=== PATIENT | female | born 1995 | race Caucasian/White ===

== ENCOUNTER 2021-01-27 15:25 | Emergency (ER) | payer OTHER ==
[~2021-01-27] VITALS: Ht 165.1 cm; Wt 96.2 kg
[2021-01-27] MEDS ORDERED: IV RINGERS SOLUTION,LACTATED 1,000 ML IV ONE (16:00)
[2021-01-27] MEDS ORDERED: ONDANSETRON PF 4 MG/2 ML VIAL. IVP ONE (16:00)
--- NOTE | 2021-01-27 16:11 | PHYS DOC ---
Past History Additional Past Medical Histor: pre eclampsia, hyperemesis gravidarum (MEI JESUS MD) Past Surgical History: Tonsillectomy (MEI JESUS MD) Alcohol Use: None (MEI JESUS MD) General Adult EDM: Chief Complaint: NAUSEA/VOMITING/DIARRHEA HPI: HPI: Patient is a 26-year-old G3, P2 at about 7 weeks gestational age by LMP complaining of nausea, vomiting, and diarrhea. Denies any fevers. States she has had a sore throat. Emesis is nonbloody or bilious. Denies any decrease in urination. Patient states she thinks that she had some "sour milk" last night that was used to make the hot chocolates. Symptoms started a couple hours after drinking that. Has not had her flu or Covid vaccines. (MEI JESUS MD) Review of Systems: Review of Systems: All other systems within normal limits except for as noted in the HPI (MEI JESUS MD) Current Medications: Current Meds: Current Medications Medications (Trade) Dose Ordered Sig/Estrada Start Time Stop Time Status Last Admin Dose Admin Lactated Ringer's 1,000 ml @ 1,000 mls/hr 1X ONCE 01/27/21 16:00 01/27/21 16:59 Ondansetron HCl (Zofran) 4 mg 1X ONCE 01/27/21 16:00 01/27/21 16:05 DC (MEI JESUS MD) Allergies: Allergies: Allergies Coded Allergies Type Severity Reaction Last Updated Verified azithromycin Allergy Unknown 01/27/21 Yes lamotrigine Allergy Unknown 01/27/21 Yes (MEI JESUS MD) Physical Exam: PE: Constitutional: Well developed, well nourished, no acute distress, non-toxic appearance. [] HENT: Normocephalic, atraumatic, bilateral external ears normal, nose normal. [] Eyes: PERRLA, conjunctiva normal, no discharge. [] Neck: No rigidity, supple, no stridor. [] Cardiovascular: Mild tachycardia, regular rhythm, brisk cap refill [] Lungs & Thorax: Non labored symmetric respirations, no tachypnea or respiratory distress [] Abdomen: Soft, nondistended. Skin: Warm, dry, no erythema, no rash. [] Back: Unremarkable Extremities: No deformities, range of motion grossly intact, no lower extremity edema [] Neurologic: Alert and oriented X 3, no focal deficits noted. [] Psychologic: Affect normal, judgement normal, mood normal. [] (MEI JESUS MD) Current Patient Data: Vital Signs: Vital Signs Date Time Temp Pulse Resp B/P (MAP) Pulse Ox O2 Delivery O2 Flow Rate FiO2 01/27/21 15:25 98.1 105 16 143/77 (99) 100 (MEI JESUS MD) EKG: EKG: [] (MEI JESUS MD) Radiology/Procedures: Radiology/Procedures: [] (MEI JESUS MD) Radiology/Procedures: [address] [address] IMAGING REPORT Signed PATIENT: ADDY ROBIN ACCOUNT: [id number] : 1995 LOCATION: ER AGE: 26 SEX: F EXAM STATUS: REG ER ORD. PHYSICIAN: MEI JESUS MD REASON: abd pain PROCEDURE: OB <14 WKS W/TV Transvaginal sonography of the pelvis Clinical indications: . Abdominal pain. LMP December 20, 2020. FINDINGS: The uterus is anteverted in position. The longitudinal and AP and transverse dimensions of the uterus are 8.2 cm and 4.9 cm and 5.2 cm respectively. The endometrial canal is thickened and echogenic measuring 15 mm. No gestational sac or yolk sac or pole is seen. Tiny amount of physiologic free fluid is seen within the cul-de-sac. The right ovary measures 2.8 cm and 3.7 cm and 1.5 cm in size and is normal. Color Doppler flow is seen within the right ovary. The left ovary measures 2.6 cm and 2.7 cm and 4.0 cm in size and contains a prominent simple cyst measuring up to 3.3 cm in size. Color Doppler flow is seen within the thin rim of ovarian parenchyma around the cyst. No free fluid is seen around the left ovary. IMPRESSION: No intrauterine gestational sac or fetus is seen. Therefore, this is an indeterminate study. An ectopic has not been excluded. Recommend continued serial quantitative beta-hCG evaluation. 3.3 cm simple left ovarian cyst. Electronically signed by: Gissel Israel MD (01/27/2021 6:16 PM) [id number] DICTATED AND SIGNED BY: GISSEL ISRAEL MD DATE: 01/27/211811 CC: MEI JESUS MD; NON,STAFF ~MTH0 0 (DANA BIRCH MD) Heart Score: C/O Chest Pain: No Risk Factors: Risk Factors: DM, Current or recent (<one month) smoker, HTN, HLP, family history of CAD, obesity. Risk Scores: Score 0 - 3: 2.5% MACE over next 6 weeks - Discharge Home Score 4 - 6: 20.3% MACE over next 6 weeks - Admit for Clinical Observation Score 7 - 10: 72.7% MACE over next 6 weeks - Early Invasive Strategies (MEI JESUS MD) Course & Med Decision Making: Course & Med Decision Making Pending medications, ultrasound, and labs at shift change. Patient is insisting that she leave since he has not come back because she is a PUI. (MEI JESUS MD) Course & Med Decision Making See Dr. Jesus chart prior shift change for details. Pt. symptoms improved and pt discharged home. Issue her a copy of US on disc. Encourage patient to have a repeat beta-hCG within 3 days. Advised her no intrauterine verified on ultrasound. Explained the risk of ectopic in these situations. Answered questions, reviewed her labs, and impressed on her the importance of close follow-up. Recommend patient to follow-up at the hospital where she plans delivery for continuity of care. Impression: 1. Gravid 2. Beta-hCG 841 3. Hemoglobin 13.8 4. Covid screen negative 5. Pt. blood type is A- 6. Hyperemesis gravidarum (DANA BIRCH MD) Dragon Disclaimer: Dragon Disclaimer: This electronic medical record was generated, in whole or in part, using a voice recognition dictation system. (MEI JESUS MD) Departure Departure: Referrals: NON,STAFF (PCP) Dragon Disclaimer This chart was dictated in whole or in part using Voice Recognition software in a busy, high-work load, and often noisy Emergency Department environment. It may contain unintended and wholly unrecognized errors or omissions. (DANA BIRCH MD) Dragon Disclaimer This chart was dictated in whole or in part using Voice Recognition software in a busy, high-work load, and often noisy Emergency Department environment. It may contain unintended and wholly unrecognized errors or omissions. (DANA BIRCH MD) MEI JESUS MD Jan 27, 2021 16:11 DANA BIRCH MD Jan 27, 2021 19:35
[2021-01-27] MEDS ORDERED: diphenhydrAMINE 50 MG/ML VIAL IVP ONE (16:30)
[2021-01-27 17:51] LABS: INFLUENZA A PATIENT NEGATIVE (NEGATIVE); INFLUENZA B PATIENT NEGATIVE (NEGATIVE)
--- NOTE | 2021-01-27 18:18 | RAD ---
Transvaginal sonography of the pelvis Clinical indications: . Abdominal pain. LMP December 20, 2020. FINDINGS: The uterus is anteverted in position. The longitudinal and AP and transverse dimensions of the uterus are 8.2 cm and 4.9 cm and 5.2 cm respectively. The endometrial canal is thickened and echo genic measuring 15 mm. No gestational sac or yolk sac or pole is seen. Tiny amount of physiolog ic free fluid is seen within the cul-de-sac. The right ovary measures 2.8 cm and 3.7 cm and 1.5 cm in size and is normal. Color Doppler flow is seen within the right ovary. The left ovary measures 2.6 c m and 2.7 cm and 4.0 cm in size and contains a prominent simple cyst measuring up to 3.3 cm in size. Color Doppler flow is seen within the thin rim of ovarian parenchyma around the cyst. No free fluid i s seen around the left ovary. IMPRESSION: No intrauterine gestational sac or fetus is seen. Therefore, this is an indeterminate marline dy. An ectopic has not been excluded. Recommend continued serial quantitative beta-hCG eval uation. 3.3 cm simple left ovarian cyst. Electronically signed by: Tushar Israel MD (01/27/2021 6:16 PM) [id number]
[2021-01-27 18:32] LABS: BASO % 1 % (0-3); EOS # 0.1 x10^3/uL (0.0-0.7); EOS % 2 % (0-3); HEMOGLOBIN 13.8 g/dL (12.0-15.5); LYMPH # 2.1 x10^3/uL (1.0-4.8); LYMPH % 31 % (24-48); MEAN CORPUSCULAR HEMOGLOBIN 28 pg (25-35); MEAN CORPUSCULAR HGB CONC 32 g/dL (31-37); MEAN CORPUSCULAR VOLUME 87 fL (79-100); MONO # 0.4 x10^3/uL (0.0-1.1); MONO % 6 % (0-9); NEUT # 4.2 x10^3uL (1.8-7.7); NEUT % 61 % (31-73); PLATELET COUNT 266 x10^3/uL (140-400); RED BLOOD COUNT 4.92 x10^6/uL (3.50-5.40); RED CELL DISTRIBUTION WIDTH 14.5 % (11.5-14.5); WHITE BLOOD COUNT 6.8 x10^3/uL (4.0-11.0)
[2021-01-27 18:38] LABS: CALCIUM 8.7 mg/dL (8.5-10.1); CREATININE 0.8 mg/dL (0.6-1.0); GFR 85.4; POTASSIUM 3.7 mmol/L (3.5-5.1)
[2021-01-27 18:45] LABS: ALBUMIN 3.7 g/dL (3.4-5.0); ALBUMIN/GLOBULIN RATIO 0.8 (1.0-1.7); MAGNESIUM 2.1 mg/dL (1.8-2.4); PHOSPHORUS 3.1 mg/dL (2.6-4.7); TOTAL BILIRUBIN 0.2 mg/dL (0.2-1.0); TOTAL PROTEIN 8.2 g/dL (6.4-8.2)
[2021-01-27 19:10] LABS: BILIRUBIN,URINE NEG (NEG); CLARITY,URINE CLEAR; COLOR,URINE YELLOW; GLUCOSE,URINE NEG (NEG)
[2021-01-27 19:11] LABS: BACTERIA,URINE 0 /HPF (0-FEW); NITRITE,URINE NEG (NEG); RBC,URINE 0 /HPF (0-2); SQUAMOUS EPITHELIAL CELL,UR MANY /LPF; UROBILINOGEN,URINE 0.2 mg/dL (0.2 mg/dL); WBC,URINE 0 /HPF (0-4)
[2021-01-27 22:57] VITALS: BP 120/74
== END 2021-01-27 22:56 | disposition home or self-care (01) ==
LOC: ER 15:25
DX: O21.0 Mild hyperemesis gravidarum (principal); Z20.822 Contact with and (suspected) exposure to COVID-19; Z3A.01 Less than 8 weeks gestation of pregnancy; Z88.1 Allergy status to other antibiotic agents; Z88.8 Allergy status to other drugs, medicaments and biological substances
CPT/HCPCS: 36415; 76801; 76817; 80053; 81001; 81025; 83690; 83735; 84100; 84702; 85025; 86900; 86901; 87426; 87804; 96361; 96374; 96375; 99285; C9803; J1200; J2405; J2790; J7120; U0003